=== PATIENT | female | born 1965 | race Two or more races ===

== ENCOUNTER 2020-06-23 13:37 | Emergency (ER) | payer BC ==
[2020-06-23] MEDS ORDERED: Ondansetron 4 MG/2 ML SDV IVPUSH ONE (14:14)
[2020-06-23] MEDS ORDERED: Ketorolac 30 MG/ML SDV IVPUSH ONE (14:14)
[2020-06-23] MEDS ORDERED: Sodium Chloride 0.9% 1,000 ML IV ONE (14:14)
[2020-06-23 14:51] LABS: ANION GAP 14.9 mEq/L (7-13); CHLORIDE,CL 101 mmol/L (98-107); SODIUM,NA 139 mmol/L (136-145)
--- NOTE | 2020-06-23 15:30 | EDM.PDOC ---
ED HPI GENERAL MEDICAL PROBLEM - General Chief Complaint: Abdominal Pain Time Seen by Provider: 06/23/20 14:30 Source of Information: Reports: Patient, RN, RN Notes Reviewed History Limitations: Reports: No Limitations - History of Present Illness INITIAL COMMENTS - FREE TEXT/NARRATIVE: Patient presents to the ED via EMS with complaints of left upper quadrant abdominal pain that radiates to the left flank. She reports she has been experiencing constipation and discomfort to her left upper quadrant "..for years." She states the pain today is worse than she has ever experienced it and rates it at a 10/10. She notes it is colicky in nature and does decrease to 7/10 at its best. She notes she had a small bowel movement last night but she hasn't had a "good" bowel movement in two days. She normally eats bran to help with her constipation but feels this food has recently been causing her abdominal discomfort. She denies recent illness, fever, shaking chills, dyspepsia, vomiting, dysuria, hematuria, melena, or hematochezia. She does attest to nausea. She has not taken any medications for this problem. 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: Musculoskeletal History: Reports: None Neurological History: Reports: None Psychiatric History: Reports: None Endocrine/Metabolic History: Reports: None Hematologic History: Reports: None Immunologic History: Reports: None Oncologic (Cancer) History: Reports: None Dermatologic History: Reports: None - Infectious Disease History Infectious Disease History: Reports: Shingles - Past Surgical History HEENT Surgical History: Reports: None Cardiovascular Surgical History: Reports: None Respiratory Surgical History: Reports: None GI Surgical History: Reports: None Female Surgical History: Reports: Hysterectomy Musculoskeletal Surgical History: Reports: None Social & Family History - Family History Family Medical History: Unobtainable - Tobacco Use Tobacco Use Status *Q: Never Tobacco User - Recreational Drug Use Recreational Drug Use: No ED ROS GENERAL - Review of Systems Review Of Systems: Comprehensive ROS is negative, except as noted in HPI. ED EXAM, GI/ABD - Physical Exam Exam: See Below Exam Limited By: No Limitations General Appearance: Alert, No Apparent Distress Throat/Mouth: Normal Inspection, Normal Voice, No Airway Compromise Head: Atraumatic, Normocephalic Respiratory/Chest: No Respiratory Distress, Lungs Clear, Normal Breath Sounds, No Accessory Muscle Use, Chest Non-Tender Cardiovascular: Normal Peripheral Pulses, Regular Rate, Rhythm, No Edema, No Gallop, No JVD, No Murmur, No Rub GI/Abdominal Exam: Normal Bowel Sounds, Soft, No Distention, No Mass, Pelvis Stable, Tender (To palpation of left upper quadrant) (Female) Exam: Deferred Rectal (Female) Exam: Deferred Back Exam: Normal Inspection, Full Range of Motion, CVA Tenderness (L). No: CVA Tenderness (R) Extremities: Normal Inspection, Normal Range of Motion, Non-Tender, Normal Capillary Refill, No Pedal Edema Neurological: Alert, Oriented, CN II-XII Intact, Normal Cognition, Normal Gait, No Motor/Sensory Deficits Psychiatric: Anxious Skin Exam: Warm, Dry, Intact, Normal Color, No Rash. No: Ecchymosis, Erythema, Jaundice, Mottled, Pallor, Petechiae #1 Interpretation EKG Date: 06/23/20 Time: 14:05 Rhythm: NSR Rate (Beats/Min): 69 [place]: Normal P-Wave: Present QRS: Normal ST-T: Normal QT: Normal Comparison: NA - No Prior EKG EKG Interpretation Comments: NSR: No evidence of acute ischemia Course - Vital Signs Last Recorded V/S: Last Vital Signs Temp 98.4 F 06/23/20 14:02 Pulse 74 06/23/20 14:02 Resp 20 06/23/20 14:02 BP 124/73 06/23/20 14:02 Pulse Ox 100 06/23/20 14:02 - Orders/Labs/Meds Orders: Active Orders 24 hr Category Date Time Status EKG 12 Lead [EKG Documentation Completion] [RC] STAT Care 06/23/20 14:21 Active CULTURE URINE [RM] Stat Lab 06/23/20 15:21 Received REFLEX LACTIC ACID YES OR NO [CHEM] Routine Lab 06/23/20 14:57 Received Labs: Laboratory Tests 06/23/20 06/23/20 06/23/20 Range/Units 14:26 14:26 14:26 WBC 8.3 (5.0-10.0) 10^3/uL RBC 4.85 (4.2-5.4) 10^6/uL Hgb 15.5 (12.0-16.0) g/dL Hct 42.4 (37.0-47.0) % MCV 87.4 (80-100) fL MCH 32.0 (27.0-34.0) pg MCHC 36.6 H (33.0-35.0) g/dL Plt Count 241 (150-450) 10^3/uL Neut % (Auto) 75.0 (42.2-75.2) % Lymph % (Auto) 17.5 L (20.5-50.1) % [place] % (Auto) 6.0 (2-8) % Eos % (Auto) 1.1 (1.0-3.0) % Baso % (Auto) 0.4 (0.0-1.0) % Sodium 139 (136-145) mmol/L Potassium 3.9 (3.5-5.1) mmol/L Chloride 101 (98-107) mmol/L Carbon Dioxide 27 (21-32) mmol/L Anion Gap 14.9 H (7-13) mEq/L BUN 19 H (7-18) mg/dL Creatinine 1.15 H (0.55-1.02) mg/dL Est Cr Clr Drug Dosing TNP Estimated GFR (MDRD) 49 BUN/Creatinine Ratio 16.5 (No establ ref range) Glucose 160 H (74-99) mg/dL Lactic Acid 2.3 H* (0.4-2.0) mmol/L Calcium 9.2 (8.5-10.1) mg/dL Magnesium 2.0 (1.8-2.4) mg/dL Total Bilirubin 0.5 (0.2-1.0) mg/dL AST 22 (15-37) U/L ALT 38 (14-59) U/L Alkaline Phosphatase 112 (46-116) U/L C-Reactive Protein 0.4 (0.0-0.9) mg/dL Total Protein 7.7 (6.4-8.2) g/dL Albumin 4.2 (3.4-5.0) g/dL Globulin 3.5 Albumin/Globulin Ratio 1.2 Amylase (25-115) U/L Lipase (73-393) U/L Urine Color (YELLOW) Urine Appearance (CLEAR) Urine pH (5.0-9.0) Ur Specific [place] (1.005-1.030) Urine Protein (NEGATIVE) Urine Glucose (UA) (NEGATIVE) Urine Ketones (NEGATIVE) Urine Occult Blood (NEGATIVE) Urine Nitrite (NEGATIVE) Urine Bilirubin (NEGATIVE) Urine Urobilinogen (0.2-1.0) mg/dL Ur Leukocyte Esterase (NEGATIVE) Urine RBC /HPF Urine WBC (0-5/HPF) /HPF Ur Epithelial Cells (NOT SEEN) /HPF Amorphous Sediment (NOT SEEN) /HPF Urine Bacteria (0-FEW/HPF) /HPF Urine Mucus (NOT SEEN) /LPF SARS-CoV-2 RNA (JOSHUA) (NEGATIVE) 06/23/20 06/23/20 06/23/20 Range/Units 14:26 14:26 15:05 WBC (5.0-10.0) 10^3/uL RBC (4.2-5.4) 10^6/uL Hgb (12.0-16.0) g/dL Hct (37.0-47.0) % MCV (80-100) fL MCH (27.0-34.0) pg MCHC (33.0-35.0) g/dL Plt Count (150-450) 10^3/uL Neut % (Auto) (42.2-75.2) % Lymph % (Auto) (20.5-50.1) % [place] % (Auto) (2-8) % Eos % (Auto) (1.0-3.0) % Baso % (Auto) (0.0-1.0) % Sodium (136-145) mmol/L Potassium (3.5-5.1) mmol/L Chloride (98-107) mmol/L Carbon Dioxide (21-32) mmol/L Anion Gap (7-13) mEq/L BUN (7-18) mg/dL Creatinine (0.55-1.02) mg/dL Est Cr Clr Drug Dosing Estimated GFR (MDRD) BUN/Creatinine Ratio (No establ ref range) Glucose (74-99) mg/dL Lactic Acid (0.4-2.0) mmol/L Calcium (8.5-10.1) mg/dL Magnesium (1.8-2.4) mg/dL Total Bilirubin (0.2-1.0) mg/dL AST (15-37) U/L ALT (14-59) U/L Alkaline Phosphatase (46-116) U/L C-Reactive Protein (0.0-0.9) mg/dL Total Protein (6.4-8.2) g/dL Albumin (3.4-5.0) g/dL Globulin Albumin/Globulin Ratio Amylase 65 (25-115) U/L Lipase 67 L (73-393) U/L Urine Color (YELLOW) Urine Appearance (CLEAR) Urine pH (5.0-9.0) Ur Specific [place] (1.005-1.030) Urine Protein (NEGATIVE) Urine Glucose (UA) (NEGATIVE) Urine Ketones (NEGATIVE) Urine Occult Blood (NEGATIVE) Urine Nitrite (NEGATIVE) Urine Bilirubin (NEGATIVE) Urine Urobilinogen (0.2-1.0) mg/dL Ur Leukocyte Esterase (NEGATIVE) Urine RBC /HPF Urine WBC (0-5/HPF) /HPF Ur Epithelial Cells (NOT SEEN) /HPF Amorphous Sediment (NOT SEEN) /HPF Urine Bacteria (0-FEW/HPF) /HPF Urine Mucus (NOT SEEN) /LPF SARS-CoV-2 RNA (JOSHUA) Negative (NEGATIVE) 06/23/20 Range/Units 15:21 WBC (5.0-10.0) 10^3/uL RBC (4.2-5.4) 10^6/uL Hgb (12.0-16.0) g/dL Hct (37.0-47.0) % MCV (80-100) fL MCH (27.0-34.0) pg MCHC (33.0-35.0) g/dL Plt Count (150-450) 10^3/uL Neut % (Auto) (42.2-75.2) % Lymph % (Auto) (20.5-50.1) % [place] % (Auto) (2-8) % Eos % (Auto) (1.0-3.0) % Baso % (Auto) (0.0-1.0) % Sodium (136-145) mmol/L Potassium (3.5-5.1) mmol/L Chloride (98-107) mmol/L Carbon Dioxide (21-32) mmol/L Anion Gap (7-13) mEq/L BUN (7-18) mg/dL Creatinine (0.55-1.02) mg/dL Est Cr Clr Drug Dosing Estimated GFR (MDRD) BUN/Creatinine Ratio (No establ ref range) Glucose (74-99) mg/dL Lactic Acid (0.4-2.0) mmol/L Calcium (8.5-10.1) mg/dL Magnesium (1.8-2.4) mg/dL Total Bilirubin (0.2-1.0) mg/dL AST (15-37) U/L ALT (14-59) U/L Alkaline Phosphatase (46-116) U/L C-Reactive Protein (0.0-0.9) mg/dL Total Protein (6.4-8.2) g/dL Albumin (3.4-5.0) g/dL Globulin Albumin/Globulin Ratio Amylase (25-115) U/L Lipase (73-393) U/L Urine Color Yellow (YELLOW) Urine Appearance Cloudy (CLEAR) Urine pH >= 9.0 (5.0-9.0) Ur Specific [place] 1.020 (1.005-1.030) Urine Protein 30 H (NEGATIVE) Urine Glucose (UA) Negative (NEGATIVE) Urine Ketones Negative (NEGATIVE) Urine Occult Blood Moderate H (NEGATIVE) Urine Nitrite Negative (NEGATIVE) Urine Bilirubin Negative (NEGATIVE) Urine Urobilinogen 1.0 (0.2-1.0) mg/dL Ur Leukocyte Esterase Small H (NEGATIVE) Urine RBC >100 H /HPF Urine WBC 5-10 H (0-5/HPF) /HPF Ur Epithelial Cells Few (NOT SEEN) /HPF Amorphous Sediment Few (NOT SEEN) /HPF Urine Bacteria Few (0-FEW/HPF) /HPF Urine Mucus Few H (NOT SEEN) /LPF SARS-CoV-2 RNA (JOSHUA) (NEGATIVE) Meds: Medications Discontinued Medications Generic Name Dose Route Start Last Admin Trade Name Freq PRN Reason Stop Dose Admin Sodium Chloride 1,000 mls @ 999 mls/hr 06/23/20 14:14 06/23/20 15:47 Normal Saline IV 06/23/20 15:14 Infused .BOLUS ONE Infusion Ketorolac Tromethamine 30 mg 06/23/20 14:14 06/23/20 14:39 Toradol IVPUSH 06/23/20 14:15 30 mg ONETIME ONE Administration Ondansetron HCl 4 mg 06/23/20 14:14 06/23/20 14:36 Zofran IVPUSH 06/23/20 14:15 4 mg ONETIME ONE Administration Tamsulosin HCl 0.4 mg 06/23/20 15:35 06/23/20 15:48 Flomax PO 06/23/20 15:36 0.4 mg ONETIME ONE Administration - Re-Assessments/Exams Free Text/Narrative Re-Assessment/Exam: 06/23/20 Mildly elevated Lactic Acid 2.3 CT of abdomen/pelvis revealed 2mm stone within the left proximal ureter; mild hydronephrosis noted. Case discussed with Dr. Alvares, urologist at [facility] in [place], given elevated lactic acid and mild obstruction. Dr. Alvares stated patient should have an 80% chance of passing this stone at home. Will treat with tamsulosin, ondansetron, and Percocet. Discussed red flag signs and symptoms which would warrant evaluation. Patient to follow up with PCP in one week, or sooner as needed. Patient and verbalized understanding and agreement with the plan of care. Departure - Departure Time of Disposition: 16:23 Disposition: Home, Self-Care 01 Condition: Good Clinical Impression: Renal calculus, left, Nausea - Discharge Information *PRESCRIPTION DRUG MONITORING PROGRAM REVIEWED*: Yes *COPY OF PRESCRIPTION DRUG MONITORING REPORT IN PATIENT REGI: No Instructions: Kidney Stones, [id number] Forms: ED Department Discharge Additional Instructions: Rx: tamsulosin Rx: ondansetron Rx: Percocet 1.) Drink plenty of water to stay hydrated and help your body pass the kidney stone. 2.) Follow up with your primary care provider in one week if pain persists, and you have not passed the stone, or sooner if needed. 3.) You may take acetaminophen (Tylenol) 650mg every six hours for pain. You may take ibuprofen (Advil/Motrin) 400mg every six hours for pain. You may stagger these medications so you are taking a dose of medicine every three hours. 4.) Eat small, frequent meals to avoid nausea. 5.) Return to your primary care provider, or the emergency department, should you develop inability to void, fever, or shaking chills. Sepsis Event Note (ED) - Evaluation Sepsis Screening Result: No Definite Risk - Focused Exam Vital Signs: Vital Signs Temp Pulse Resp BP Pulse Ox 06/23/20 14:02 98.4 F 74 20 124/73 100 - My Orders Last 24 Hours: My Active Orders 06/23/20 14:21 EKG 12 Lead [EKG Documentation Completion] [RC] STAT 06/23/20 14:57 REFLEX LACTIC ACID YES OR NO [CHEM] Routine 06/23/20 15:21 CULTURE URINE [RM] Stat - Assessment/Plan Last 24 Hours: My Active Orders 06/23/20 14:21 EKG 12 Lead [EKG Documentation Completion] [RC] STAT 06/23/20 14:57 REFLEX LACTIC ACID YES OR NO [CHEM] Routine 06/23/20 15:21 CULTURE URINE [RM] Stat
[2020-06-23] MEDS ORDERED: Tamsulosin 0.4 MG Cap.ER PO ONE (15:35)
--- NOTE | 2020-06-23 15:43 | CT ---
EXAMINATION: Abdomen Pelvis wo Cont SEX: Female AGE: 55 years CLINICAL HISTORY: 55-year-old female complaining of "colicky" left abdominal pain that radiates to flank. Scan technique: Volume acquisition of data emergency unenhanced CT scan of the abdomen and pelvis (renal stone study) obtained with patient lying supine on the Siemens multislice scanner [place], [place]. All data archived in the PACS system for storage, reformatting axial/sagittal/coronal planes and study. INTERPRETATION: Abnormal. 1. *Partially obstructing 2 mm diameter, proximal left ureterolith (STONE). Ipsilateral mild pyelocaliectasis. 2. Similar tiny calculus upper pole calyx contralateral right kidney without associated signs of obstruction. 3. Unenhanced exam reveals no sign of renal cortical mass lesion. No intraluminal urinary bladder stones. 4. Gallbladder, unenhanced liver, stomach, spleen, pancreas and adrenal glands anatomically correct. 5. No pelvic or abdominal mass lesion. No mesenteric or retroperitoneal lymphadenopathy. No inflammatory "dirty" peritoneal fat, signs of mechanical bowel obstruction, ascites or free intraperitoneal air. 6. Normal caliber aortoiliac vessels. Osteopenia. Chronic severe lower lumbar disc disease (L5-S1).
== END 2020-06-23 16:30 | disposition home or self-care (01) ==
LOC: DL.ED 13:37
DX: N13.2 Hydronephrosis with renal and ureteral calculous obstruction (principal); K21.9 Gastro-esophageal reflux disease without esophagitis; Z20.822 Contact with and (suspected) exposure to COVID-19; Z88.8 Allergy status to other drugs, medicaments and biological substances; Z79.899 Other long term (current) drug therapy
CPT/HCPCS: 36415; 74176; 80053; 81001; 82150; 83605; 83690; 83735; 85025; 86140; 87086; 93005; 93010; 96374; 96375; 99284; 99285-25; A9270-GY; J1885; J2405; J7030; U0002

== ENCOUNTER 2020-10-05 15:08 | Emergency (ER) | payer BC ==
[2020-10-05] MEDS ORDERED: Tetracaine HCl/PF 0.5% 4 ML Bottle EYERT ONE (15:46)
[2020-10-05] MEDS ORDERED: Clindamycin HCl 150 MG Cap PO ONE (15:47)
[2020-10-05] MEDS ORDERED: Gentamicin 0.3% Ophth Soln 5 ML Bottle EYERT ONE (15:48)
[2020-10-05] MEDS ORDERED: Tetracaine HCl/PF 0.5% 4 ML Bottle ONE (16:15)
--- NOTE | 2020-10-05 16:21 | EDM.PDOC ---
Scribed by Estrella Christian 10/05/20 [id number] for Liban Mccarthy MD ED HPI GENERAL MEDICAL PROBLEM - General Chief Complaint: Skin Complaint Stated Complaint: POSSIBLE SHINGLES Time Seen by Provider: 10/05/20 15:41 Source of Information: Reports: Patient, RN, RN Notes Reviewed History Limitations: Reports: No Limitations - History of Present Illness INITIAL COMMENTS - FREE TEXT/NARRATIVE: Patient presents to ED with onset of a small white bump to the right lower eyelid, which the patient noticed yesterday. Since that time it has increased in size and became more painful. Since that time mild redness and tenderness has spread to the right maxillary face. Patient was worried about shingles or some type of infection. Denies fever. Denies visual changes. Onset Date: 10/04/20 Duration: Getting Worse Location: Reports: Other (right eye) Quality: Reports: Ache Severity: Moderate Improves with: Reports: None Worsens with: Reports: None Associated Symptoms: Reports: No Other Symptoms Right Face/Facial Pain Score (Numeric/FACES): 4 - Related Data Allergies Allergy/AdvReac Type Severity Reaction Status Date / Time adhesive tape Allergy Itching Verified 06/23/20 14:28 amoxicillin Allergy Rash Verified 10/05/20 15:45 codeine Allergy Airway Verified 10/05/20 15:48 Tightness iodine Allergy Hives Verified 10/05/20 15:48 Penicillins Allergy Rash Verified 10/05/20 15:45 triamcinolone [From Kenalog] Allergy Muscle Verified 10/05/20 15:45 Aches Home Meds: Home Meds Gabapentin [Neurontin] 200 mg PO BEDTIME 06/23/20 [History] Lansoprazole [Prevacid] 30 mg PO DAILY 06/23/20 [History] Cholecalciferol (Vitamin D3) [Vitamin D3] 1,000 mg PO DAILY 10/05/20 [History] Mv,Calcium,Min/Iron/Folic/Vitk [Multi For Her Tablet] 1 tab PO DAILY 10/05/20 [History] Past Medical History HEENT History: Reports: None Cardiovascular History: Reports: None Respiratory History: Reports: None Gastrointestinal History: Reports: GERD Genitourinary History: Reports: None [employer] History: Reports: Musculoskeletal History: Reports: None Neurological History: Reports: None Psychiatric History: Reports: None Endocrine/Metabolic History: Reports: None Hematologic History: Reports: None Immunologic History: Reports: None Oncologic (Cancer) History: Reports: None Dermatologic History: Reports: None - Infectious Disease History Infectious Disease History: Reports: Shingles - Past Surgical History HEENT Surgical History: Reports: None Cardiovascular Surgical History: Reports: None Respiratory Surgical History: Reports: None GI Surgical History: Reports: None Female Surgical History: Reports: Hysterectomy Musculoskeletal Surgical History: Reports: None Social & Family History - Family History Family Medical History: Unobtainable ED ROS GENERAL - Review of Systems Review Of Systems: Comprehensive ROS is negative, except as noted in HPI. ED EXAM, SKIN/RASH Exam: See Below Exam Limited By: No Limitations General Appearance: Alert, WD/WN, No Apparent Distress Eye Exam: Right Eye: Conjunctival Injection, Periorbital Changes, Other (Rt lower eyelid has a white purulent head overlying an eyelash pore), Left Eye: Normal Inspection, Bilateral Eye: EOMI, PERRL Ears: Normal External Exam, Normal Canal, Hearing Grossly Normal, Normal TMs Nose: Normal Inspection, Normal Mucosa, No Blood Throat/Mouth: Normal Inspection, Normal Lips, Normal Teeth, Normal Gums, Normal Oropharynx, Normal Voice, No Airway Compromise Head: Atraumatic, Facial Swelling (Rt maxillary face 3cm x 4cm), Facial Tenderness (Rt maxillary face) Neck: Normal Inspection, Supple, Non-Tender, Full Range of Motion. No: Lymphadenopathy (L), Lymphadenopathy (R) Respiratory/Chest: No Respiratory Distress, Lungs Clear Cardiovascular: Regular Rate, Rhythm Neurological: Alert, Oriented, CN II-XII Intact, Normal Cognition, No Motor/Sensory Deficits, Abnormal Reflexes Psychiatric: Normal Mood Skin: Warm, Dry, Intact ED SKIN PROCEDURES - I&D Site: Right lower eyelid sty Local Anesthesia: Lidocaine: Other (Tetracaine Ophthalmic 1gtt) Area Incised With: Needle Drainage: Purulent, Small Amount Probed to Break Up Loculations: No Packed With: None Sterile Dressing: None Complications: No Course - Vital Signs Last Recorded V/S: Last Vital Signs Temp 98 F 10/05/20 15:26 Pulse 90 10/05/20 15:26 Resp 18 10/05/20 15:26 BP 128/80 10/05/20 15:26 Pulse Ox 97 10/05/20 15:26 - Orders/Labs/Meds Orders: Active Orders 24 hr Category Date Time Status CULTURE EYE [RM] Stat Lab 10/05/20 16:15 Ordered Meds: Medications Discontinued Medications Generic Name Dose Route Start Last Admin Trade Name [place] PRZachary Reason Stop Dose Admin Clindamycin HCl 300 mg 10/05/20 15:47 10/05/20 15:55 Clindamycin Hcl 150 Mg Cap PO 10/05/20 15:48 300 mg ONETIME ONE Administration Gentamicin Sulfate 1 ml 10/05/20 15:48 10/05/20 15:56 Gentamicin 0.3% Ophth Soln 5 Ml Bottle EYERT 10/05/20 15:49 1 ml ONETIME ONE Administration Tetracaine HCl 1 ml 10/05/20 15:46 10/05/20 15:56 Tetracaine Hcl/Pf 0.5% 4 Ml Bottle EYERT 10/05/20 15:47 1 ml ONETIME ONE Administration Departure - Departure Time of Disposition: 16:16 Disposition: Home, Self-Care 01 Condition: Good Clinical Impression: Hordeolum externum of right lower eyelid, Facial cellulitis - Discharge Information *PRESCRIPTION DRUG MONITORING PROGRAM REVIEWED*: Not Applicable *COPY OF PRESCRIPTION DRUG MONITORING REPORT IN PATIENT REGI: Not Applicable Instructions: Stye, Preseptal Cellulitis, Adult Forms: ED Department Discharge Additional Instructions: Rx: Clindamycin 300mg Gentamicin Ophthalmic Solution 0.3% One drop to right eye four times a day for five days. Tetracaine Ophthalmic Solution 0.5% One drop to right eye every four hours as needed for pain for up to 24 hours. Apply hot moist compress to right eye until pain and infection are improved. Follow up in clinic or ER if worse at any time. Sepsis Event Note (ED) - Evaluation Sepsis Screening Result: No Definite Risk - Focused Exam Vital Signs: Vital Signs Temp Pulse Resp BP Pulse Ox 10/05/20 15:26 98 F 90 18 128/80 97 - My Orders Last 24 Hours: My Active Orders 10/05/20 16:15 CULTURE EYE [RM] Stat - Assessment/Plan Last 24 Hours: My Active Orders 10/05/20 16:15 CULTURE EYE [RM] Stat I have read and agree with the documentation that has been completed regarding this visit. By signing this record, I attest that the documentation was completed in my physical presence and is an accurate record of the encounter.
== END 2020-10-05 16:28 | disposition home or self-care (01) ==
LOC: DL.ED 15:08
DX: H00.012 Hordeolum externum right lower eyelid (principal); H00.032 Abscess of right lower eyelid; K21.9 Gastro-esophageal reflux disease without esophagitis; Z88.0 Allergy status to penicillin; Z88.5 Allergy status to narcotic agent; Z88.8 Allergy status to other drugs, medicaments and biological substances; Z91.048 Other nonmedicinal substance allergy status
CPT/HCPCS: 67700; 87070; 99283; A9270

== ENCOUNTER 2023-05-13 05:51 | Day surgery (SDC) | payer BC ==
[2023-05-13] MEDS ORDERED: fentaNYL 100 MCG/2 ML SDV ONE (05:59)
[2023-05-13] MEDS ORDERED: Midazolam 1 MG/ML 2 ML SDV ONE (05:59)
[2023-05-13] MEDS ORDERED: Dextrose 5%-0.45% NaCl 1,000 ML IV SCH (06:00)
[2023-05-13] MEDS ORDERED: fentaNYL 100 MCG/2 ML SDV IV ONE ×2 (07:15→07:16)
[2023-05-13] MEDS ORDERED: Midazolam 1 MG/ML 2 ML SDV IV ONE ×2 (07:16→07:17)
== END 2023-05-13 08:25 | disposition home or self-care (01) ==
LOC: DL.ENDO 05:51
PROVIDERS: ATTEND Internal Medicine Gastroenterology
DX: K44.9 Diaphragmatic hernia without obstruction or gangrene (principal); K21.9 Gastro-esophageal reflux disease without esophagitis; E78.5 Hyperlipidemia, unspecified; Z90.710 Acquired absence of both cervix and uterus; Z79.82 Long term (current) use of aspirin; Z79.899 Other long term (current) drug therapy
CPT/HCPCS: 43239; 87077; J2250; J3010; J7042

== ENCOUNTER → 2023-05-16 | Day surgery (SDC) | payer BC ==
[~2023-05-16] MED LIST: Dextrose 5%-0.45% NaCl 1,000 ML IV SCH; Midazolam 1 MG/ML 2 ML SDV IV ONE; Midazolam 1 MG/ML 2 ML SDV ONE; fentaNYL 100 MCG/2 ML SDV IV ONE; fentaNYL 100 MCG/2 ML SDV ONE
== END | disposition home or self-care (01) ==
LOC: DL.ENDO 06:28
PROVIDERS: ATTEND Internal Medicine Gastroenterology
DX: Z12.11 Encounter for screening for malignant neoplasm of colon (principal); K21.9 Gastro-esophageal reflux disease without esophagitis; G47.33 Obstructive sleep apnea (adult) (pediatric); E78.5 Hyperlipidemia, unspecified; Z79.899 Other long term (current) drug therapy; Z79.82 Long term (current) use of aspirin
CPT/HCPCS: J2250; J3010; J7042